=== PATIENT | female | born 1975 | race Caucasian/White ===

== ENCOUNTER 2018-07-01 07:52 | Inpatient (IN) | payer OTHER ==
[2018-07-01] MEDS: CEFAZOLIN 2 GM/50 ML (PMX) 50 ML IVPB (07:00)
[2018-07-01] MEDS: SOD CHLORIDE 0.9% 1,000 ML IV (07:00)
[~2018-07-01 07:52] MED LIST: CEFAZOLIN 1 GM INJ; DESFLURANE 15 MIN; SUCCINYLCHOLINE CHLORIDE 100 MG/5 ML SYG IV
[2018-07-01] MEDS ORDERED: ROCURONIUM 50 MG INJ (11:26)
[2018-07-01] MEDS ORDERED: GLYCOPYRROLATE 0.4 MG INJ (11:26)
[2018-07-01] MEDS ORDERED: PROPOFOL 20 ML (11:26)
[2018-07-01] MEDS ORDERED: CEFAZOLIN 1 GM INJ (11:26)
[2018-07-01] MEDS ORDERED: NEOSTIGMINE 3 MG/3 ML SYRINGE (11:26)
[2018-07-01] MEDS ORDERED: DEXAMETHASONE 4 MG/ML 5 ML INJ (11:29)
[2018-07-01] MEDS ORDERED: FENTAnyl 50 MCG/ML VIAL (11:29)
[2018-07-01] MEDS ORDERED: MIDAZOLAM 1 MG/ML 2 ML INJ (11:29)
[2018-07-01] MEDS ORDERED: ONDANSETRON 4 MG INJ (11:29)
[2018-07-01] MEDS ORDERED: MIDAZOLAM 1 MG/ML 2 ML INJ IV (11:30)
[2018-07-01] MEDS ORDERED: DIPHENHYDRAMINE 50 MG INJ IV (11:30)
[2018-07-01] MEDS ORDERED: HYDROmorphONE 1 MG/5 ML IV SYRINGE IV ×2 (11:30)
[2018-07-01] MEDS ORDERED: EPHEDrine SULFATE 50 MG/5 ML SYG IV (11:30)
[2018-07-01] MEDS ORDERED: IPRATROPIUM (NEB) 0.5 MG/2.5 ML AMP HHN (11:30)
[2018-07-01] MEDS ORDERED: OXYCODONE/ACETAMINOPHEN (5/325) TAB PO (11:30)
[2018-07-01] MEDS ORDERED: ALBUTEROL 0.083% (NEB) 2.5 MG/3 ML AMP HHN (11:30)
[2018-07-01] MEDS ORDERED: hydrALAzine 20 MG INJ IV (11:30)
[2018-07-01] MEDS ORDERED: LABETALOL HCL 20MG INJ IV (11:30)
[2018-07-01] MEDS ORDERED: TRIMETHOBENZAMIDE 100 MG/ML VIAL IM (11:30)
[2018-07-01] MEDS ORDERED: FENTAnyl 50 MCG/ML VIAL IV ×3 (11:30)
[2018-07-01] MEDS: BUPIVACAINE 0.5%/EPI (SDV) 30 ML INJ (11:57)
[2018-07-01] MEDS: LIDOCAINE 1% (MPF) 30 ML INJ (11:57)
[2018-07-01] MEDS ORDERED: SUGAMMADEX SODIUM 200 MG/2 ML VIAL IV (12:33)
[2018-07-01] MEDS ORDERED: METOCLOPRAMIDE 10 MG INJ (12:48)
[2018-07-01] MEDS: MEPERIDINE 25 MG INJ IV (12:58)
[2018-07-01] MEDS: HYDROmorphONE 1 MG/5 ML IV SYRINGE IV (12:58)
[2018-07-01] MEDS: ONDANSETRON 4 MG INJ IV (12:59)
[2018-07-01] MEDS ORDERED: LACTATED RINGER'S 1,000 ML IV (13:17)
[2018-07-01] MEDS ORDERED: HYDROCODONE/APAP (5/325) TAB PO (13:30)
[2018-07-01] MEDS ORDERED: HYDROmorphONE 0.5 MG/0.5 ML SYG IV (13:30)
[2018-07-01] MEDS ORDERED: ONDANSETRON 4 MG INJ IV (13:30)
[2018-07-01] MEDS ORDERED: KETOROLAC 30 MG INJ IV (13:30)
[2018-07-01] MEDS: hydrALAzine 20 MG INJ IV (17:01)
[2018-07-01] MEDS: OXYCODONE/ACETAMINOPHEN (5/325) TAB PO (17:06)
[2018-07-02] MEDS ORDERED: ENOXAPARIN 40 MG/0.4 ML SYG SC (07:00)
== END 2018-07-01 18:15 | disposition home or self-care (01) | DRG 418 ==
LOC: REC 07:52
PROC: 0FT44ZZ Resection of Gallbladder, Percutaneous Endoscopic Approach (ICD-10-PCS; principal; 2018-07-01 09:30)
DX: K81.1 Chronic cholecystitis (principal); Z68.42 Body mass index [BMI] 45.0-49.9, adult; E66.01 Morbid (severe) obesity due to excess calories; Z86.79 Personal history of other diseases of the circulatory system
CPT/HCPCS: 88304